=== PATIENT | female | born 1995 | race Caucasian/White ===

== ENCOUNTER 2022-05-15 12:40 | Emergency (ER) | payer MEDICAID ==
[2022-05-15 13:09] LABS: Pregnancy Test - Urine (BHCG) Negative (Negative); Pregu Control Background? CLEAR/WHITE (CLR/WHITE); Pregu Control Bar Appear? YES (CONTROL BAR)
[2022-05-15 13:10] LABS: Specific Gravity 1.018 (1.002-1.036)
== END 2022-05-15 13:34 | disposition home or self-care (01) ==
LOC: NAV ERS 12:40
DX: N92.6 Irregular menstruation, unspecified (principal)
CPT/HCPCS: 81025; 99283